=== PATIENT | female | born 1955 | race Caucasian/White ===

== ENCOUNTER → 2017-01-06 | Outpatient (CLI) | payer OTHER ==
[~2017-01-06] MED LIST: ADVAIR 250/501 EA INH; CARAFATE1 G1 PO; FERROUS GLUCON324 MG PO; LEVAQUIN750 MG PO; PROTONIX40 MG PO; REGLAN10 MG PO; REGLAN5 MG PO; SPIRIVA18 MCG PO
[2017-01-06 18:51] LABS: HEMATOCRIT 31.8 % (37.0-47.0); HEMOGLOBIN 10.5 g/dl (12.0-16.0); MEAN CELL VOLUME 80.7 fl (81.0-99.0); MEAN CORPUSCULAR HGB 26.6 pg (27.0-31.0); MEAN PLATELET VOLUME 9.9 fl (9.6-12.3); PLATELET COUNT AUTOMATED 364 10*3/uL (130-400); RED BLOOD COUNT 3.94 10*6/uL (4.10-5.10); RED CELL DISTRI WIDTH 13.7 % (0-14.5); WHITE BLOOD COUNT 10.3 10*3/uL (4.8-10.8)
[2017-01-06 19:00] LABS: INTERNATIONAL NORM RATIO 0.9 (2.0-3.5); PROTHROMBIN TIME 9.9 SECONDS (9.0-12.4)
[2017-01-06 19:08] LABS: BILIRUBIN, TOTAL 0.5 mg/dl (0.2-1.0); POTASSIUM 3.9 mmol/L (3.5-5.1); TOTAL PROTEIN 7.9 gm/dL (6.4-8.2)
[2017-01-06 19:24] LABS: EOSINOPHIL # 0.2 10*3/uL (0-0.4); EOSINOPHILS 2 % (1-4); LYMPHOCYTE # 1.2 10*3/uL (1.3-4.4); MONOCYTE # 1.6 10*3/uL (0.1-1.0); NEUTROPHIL # 7.2 10*3/uL (2.3-7.9); NEUTROPHILS 70 % (47-73); TOTAL CELLS COUNTED 100 #CELLS
[2017-01-06 19:25] LABS: PLATELET SUFFICIENCY NORMAL (NORMAL)
[2017-01-06 19:26] LABS: MICROCYTOSIS SLIGHT
[2017-01-06 19:27] LABS: HYPOCHROMIA SLIGHT
== END | disposition home or self-care (01) ==
LOC: LAB 18:18
PROVIDERS: Surgery
DX: C78.7 Secondary malignant neoplasm of liver and intrahepatic bile duct (principal)

== ENCOUNTER → 2017-01-09 | Outpatient (CLI) | payer OTHER ==
[2017-01-09 21:05] LABS: HEMATOCRIT 34.3 % (37.0-47.0); HEMOGLOBIN 11.2 g/dl (12.0-16.0); MEAN CELL VOLUME 82.3 fl (81.0-99.0); MEAN CORPUSCULAR HGB 26.9 pg (27.0-31.0); MEAN CORPUSCULAR HGB CONC 32.7 g/dl (33.0-37.0); MEAN PLATELET VOLUME 9.5 fl (9.6-12.3); PLATELET COUNT AUTOMATED 559 10*3/uL (130-400); RED BLOOD COUNT 4.17 10*6/uL (4.10-5.10); RED CELL DISTRI WIDTH 14.4 % (0-14.5); WHITE BLOOD COUNT 14.4 10*3/uL (4.8-10.8)
[2017-01-09 21:22] LABS: PROTHROMBIN TIME 10.1 SECONDS (9.0-12.4)
[2017-01-09 21:23] LABS: ALBUMIN 3.1 gm/dl (3.1-4.5); BILIRUBIN, TOTAL 0.3 mg/dl (0.2-1.0); POTASSIUM 3.6 mmol/L (3.5-5.1); TOTAL PROTEIN 8.1 gm/dL (6.4-8.2)
[2017-01-09 21:56] LABS: EOSINOPHIL # 0.3 10*3/uL (0-0.4); EOSINOPHILS 2 % (1-4); LYMPHOCYTE # 1.6 10*3/uL (1.3-4.4); MONOCYTE # 0.9 10*3/uL (0.1-1.0); NEUTROPHIL # 11.7 10*3/uL (2.3-7.9); NEUTROPHILS 81 % (47-73); TOTAL CELLS COUNTED 100 #CELLS
[2017-01-09 21:58] LABS: PLATELET SUFFICIENCY HIGH (NORMAL)
== END | disposition home or self-care (01) ==
LOC: LAB 20:25
PROVIDERS: Surgery
DX: C78.7 Secondary malignant neoplasm of liver and intrahepatic bile duct (principal)

== ENCOUNTER → 2017-01-13 | Outpatient (CLI) | payer OTHER ==
[2017-01-13 19:41] LABS: BASO # 0.1 10*3/uL (0.0-0.1); BASO % 0.7 % (0.0-1.0); EOS # 0.2 10*3/uL (0.0-0.4); EOS % 1.6 % (1.0-4.0); HEMATOCRIT 33.7 % (37.0-47.0); HEMOGLOBIN 10.5 g/dl (12.0-16.0); IG # 0.2 10*3/uL (0.0-0.1); LYMPH # 1.6 10*3/uL (1.3-4.4); LYMPH % 12.8 % (27.0-41.0); MEAN CELL VOLUME 84.5 fl (81.0-99.0); MEAN CORPUSCULAR HGB 26.3 pg (27.0-31.0); MEAN CORPUSCULAR HGB CONC 31.2 g/dl (33.0-37.0); MEAN PLATELET VOLUME 9.6 fl (9.6-12.3); MONO # 0.9 10*3/uL (0.1-1.0); MONO % 7.4 % (3.0-9.0); NEUT # 9.2 10*3/uL (2.3-7.9); NEUT % 75.7 % (47.0-73.0); PLATELET COUNT AUTOMATED 601 10*3/uL (130-400); RED BLOOD COUNT 3.99 10*6/uL (4.10-5.10); RED CELL DISTRI WIDTH 14.9 % (0-14.5); WHITE BLOOD COUNT 12.2 10*3/uL (4.8-10.8)
[2017-01-13 19:53] LABS: PROTHROMBIN TIME 10.1 SECONDS (9.0-12.4)
[2017-01-13 19:58] LABS: ALBUMIN 3.1 gm/dl (3.1-4.5); BILIRUBIN, TOTAL 0.3 mg/dl (0.2-1.0); POTASSIUM 3.8 mmol/L (3.5-5.1); TOTAL PROTEIN 7.9 gm/dL (6.4-8.2)
== END | disposition home or self-care (01) ==
LOC: LAB 19:06
PROVIDERS: Nurse Practitioner Family
DX: C78.7 Secondary malignant neoplasm of liver and intrahepatic bile duct (principal)

== ENCOUNTER → 2017-01-21 | Outpatient (CLI) | payer OTHER ==
[2017-01-21 16:25] LABS: BASO # 0.1 10*3/uL (0.0-0.1); BASO % 0.7 % (0.0-1.0); EOS # 0.2 10*3/uL (0.0-0.4); HEMOGLOBIN 11.2 g/dl (12.0-16.0); IG # 0.1 10*3/uL (0.0-0.1); LYMPH # 1.2 10*3/uL (1.3-4.4); LYMPH % 11.4 % (27.0-41.0); MEAN CELL VOLUME 85.4 fl (81.0-99.0); MEAN CORPUSCULAR HGB 27.3 pg (27.0-31.0); MEAN PLATELET VOLUME 9.5 fl (9.6-12.3); MONO # 1.3 10*3/uL (0.1-1.0); MONO % 12.2 % (3.0-9.0); NEUT # 7.6 10*3/uL (2.3-7.9); NEUT % 72.9 % (47.0-73.0); PLATELET COUNT AUTOMATED 436 10*3/uL (130-400); RED CELL DISTRI WIDTH 17.1 % (0-14.5); WHITE BLOOD COUNT 10.4 10*3/uL (4.8-10.8)
== END | disposition home or self-care (01) ==
LOC: LAB 16:07
PROVIDERS: Surgery
DX: C7A.090 Malignant carcinoid tumor of the bronchus and lung (principal)

== ENCOUNTER → 2017-02-10 | Outpatient (CLI) | payer OTHER ==
[2017-02-10 19:38] LABS: BASO # 0.1 10*3/uL (0.0-0.1); BASO % 0.6 % (0.0-1.0); EOS # 0.1 10*3/uL (0.0-0.4); EOS % 0.5 % (1.0-4.0); HEMATOCRIT 31.2 % (37.0-47.0); HEMOGLOBIN 10.3 g/dl (12.0-16.0); IG # 0.3 10*3/uL (0.0-0.1); LYMPH # 1.4 10*3/uL (1.3-4.4); LYMPH % 12.5 % (27.0-41.0); MEAN CELL VOLUME 87.4 fl (81.0-99.0); MEAN CORPUSCULAR HGB 28.9 pg (27.0-31.0); MEAN PLATELET VOLUME 9.2 fl (9.6-12.3); MONO # 1.2 10*3/uL (0.1-1.0); MONO % 10.9 % (3.0-9.0); NEUT % 72.9 % (47.0-73.0); PLATELET COUNT AUTOMATED 362 10*3/uL (130-400); RED BLOOD COUNT 3.57 10*6/uL (4.10-5.10); RED CELL DISTRI WIDTH 18.6 % (0-14.5); WHITE BLOOD COUNT 10.9 10*3/uL (4.8-10.8)
[2017-02-10 19:47] LABS: INTERNATIONAL NORM RATIO 0.9 (2.0-3.5); PROTHROMBIN TIME 9.6 SECONDS (9.0-12.4)
[2017-02-10 19:53] LABS: ALBUMIN 3.2 gm/dl (3.1-4.5); BILIRUBIN, TOTAL 0.5 mg/dl (0.2-1.0); MAGNESIUM 2.1 mg/dL (1.5-2.1); PHOSPHOROUS 1.6 mg/dL (2.5-4.9); POTASSIUM 3.5 mmol/L (3.5-5.1); TOTAL PROTEIN 7.8 gm/dL (6.4-8.2)
== END | disposition home or self-care (01) ==
LOC: LAB 19:07
PROVIDERS: Physician Assistant Medical
DX: C78.7 Secondary malignant neoplasm of liver and intrahepatic bile duct (principal); C7A.090 Malignant carcinoid tumor of the bronchus and lung

== ENCOUNTER → 2017-02-13 | Outpatient (CLI) | payer OTHER ==
[2017-02-13 19:49] LABS: BASO # 0.1 10*3/uL (0.0-0.1); BASO % 0.6 % (0.0-1.0); EOS # 0.1 10*3/uL (0.0-0.4); EOS % 0.9 % (1.0-4.0); HEMOGLOBIN 10.1 g/dl (12.0-16.0); IG # 0.2 10*3/uL (0.0-0.1); LYMPH # 1.7 10*3/uL (1.3-4.4); LYMPH % 14.4 % (27.0-41.0); MEAN CELL VOLUME 89.6 fl (81.0-99.0); MEAN CORPUSCULAR HGB 29.2 pg (27.0-31.0); MEAN CORPUSCULAR HGB CONC 32.6 g/dl (33.0-37.0); MONO # 1.2 10*3/uL (0.1-1.0); MONO % 10.2 % (3.0-9.0); NEUT # 8.3 10*3/uL (2.3-7.9); NEUT % 72.1 % (47.0-73.0); PLATELET COUNT AUTOMATED 415 10*3/uL (130-400); RED BLOOD COUNT 3.46 10*6/uL (4.10-5.10); RED CELL DISTRI WIDTH 19.3 % (0-14.5); WHITE BLOOD COUNT 11.6 10*3/uL (4.8-10.8)
[2017-02-13 19:59] LABS: ALBUMIN 3.2 gm/dl (3.1-4.5); ALKALINE PHOSPHATASE 79 U/L (45-117); BILIRUBIN, TOTAL 0.5 mg/dl (0.2-1.0); BUN 24 mg/dl (7-24); CARBON DIOXIDE 30 mmol/L (21-32); CHLORIDE 97 mmol/L (98-107); EST GLOM FILT AFRICAN AMERICAN > 60 ml/min; GLUCOSE 94 mg/dL (65-99); MAGNESIUM 1.9 mg/dL (1.5-2.1); PHOSPHOROUS 3.8 mg/dL (2.5-4.9); POTASSIUM 4.8 mmol/L (3.5-5.1); SGOT/AST 20 IU/L (3-35); SGPT/ALT 57 U/L (12-78); SODIUM 136 mmol/L (136-145); TOTAL PROTEIN 7.7 gm/dL (6.4-8.2)
[2017-02-13 20:07] LABS: INTERNATIONAL NORM RATIO 0.9 (2.0-3.5); PROTHROMBIN TIME 9.9 SECONDS (9.0-12.4)
== END | disposition home or self-care (01) ==
LOC: LAB 18:55
PROVIDERS: Physician Assistant Medical
DX: C78.7 Secondary malignant neoplasm of liver and intrahepatic bile duct (principal)

== ENCOUNTER → 2017-02-17 | Outpatient (CLI) | payer OTHER ==
[2017-02-17 19:35] LABS: ALBUMIN 3.2 gm/dl (3.1-4.5); ALKALINE PHOSPHATASE 74 U/L (45-117); BASO % 0.7 % (0.0-1.0); BILIRUBIN, TOTAL 0.3 mg/dl (0.2-1.0); BUN 21 mg/dl (7-24); CARBON DIOXIDE 31 mmol/L (21-32); CHLORIDE 99 mmol/L (98-107); EOS # 0.1 10*3/uL (0.0-0.4); EOS % 1.6 % (1.0-4.0); EST GLOM FILT AFRICAN AMERICAN > 60 ml/min; GLUCOSE 101 mg/dL (65-99); HEMATOCRIT 31.8 % (37.0-47.0); HEMOGLOBIN 10.1 g/dl (12.0-16.0); IG # 0.1 10*3/uL (0.0-0.1); LYMPH # 1.3 10*3/uL (1.3-4.4); LYMPH % 22.9 % (27.0-41.0); MAGNESIUM 1.9 mg/dL (1.5-2.1); MEAN CELL VOLUME 92.4 fl (81.0-99.0); MEAN CORPUSCULAR HGB 29.4 pg (27.0-31.0); MEAN CORPUSCULAR HGB CONC 31.8 g/dl (33.0-37.0); MEAN PLATELET VOLUME 9.2 fl (9.6-12.3); MONO # 0.8 10*3/uL (0.1-1.0); MONO % 13.4 % (3.0-9.0); NEUT # 3.4 10*3/uL (2.3-7.9); NEUT % 60.1 % (47.0-73.0); PHOSPHOROUS 2.5 mg/dL (2.5-4.9); PLATELET COUNT AUTOMATED 417 10*3/uL (130-400); POTASSIUM 4.4 mmol/L (3.5-5.1); RED BLOOD COUNT 3.44 10*6/uL (4.10-5.10); RED CELL DISTRI WIDTH 19.9 % (0-14.5); SGOT/AST 18 IU/L (3-35); SGPT/ALT 27 U/L (12-78); SODIUM 138 mmol/L (136-145); TOTAL PROTEIN 7.3 gm/dL (6.4-8.2); WHITE BLOOD COUNT 5.6 10*3/uL (4.8-10.8)
[2017-02-17 19:36] LABS: INTERNATIONAL NORM RATIO 0.9 (2.0-3.5); PROTHROMBIN TIME 9.9 SECONDS (9.0-12.4)
== END | disposition home or self-care (01) ==
LOC: LAB 18:41
PROVIDERS: Surgery
DX: R79.89 Other specified abnormal findings of blood chemistry (principal); Z85.05 Personal history of malignant neoplasm of liver

== ENCOUNTER → 2017-02-25 | Outpatient (CLI) | payer OTHER ==
[2017-02-25 19:07] LABS: BASO # 0.1 10*3/uL (0.0-0.1); BASO % 0.9 % (0.0-1.0); EOS # 0.2 10*3/uL (0.0-0.4); EOS % 3.4 % (1.0-4.0); HEMATOCRIT 37.5 % (37.0-47.0); LYMPH # 1.4 10*3/uL (1.3-4.4); LYMPH % 25.5 % (27.0-41.0); MEAN CELL VOLUME 95.2 fl (81.0-99.0); MEAN CORPUSCULAR HGB 30.5 pg (27.0-31.0); MONO # 0.7 10*3/uL (0.1-1.0); MONO % 12.7 % (3.0-9.0); NEUT # 3.1 10*3/uL (2.3-7.9); NEUT % 56.9 % (47.0-73.0); PLATELET COUNT AUTOMATED 333 10*3/uL (130-400); RED BLOOD COUNT 3.94 10*6/uL (4.10-5.10); RED CELL DISTRI WIDTH 20.2 % (0-14.5); WHITE BLOOD COUNT 5.4 10*3/uL (4.8-10.8)
[2017-02-25 19:22] LABS: ALBUMIN 3.5 gm/dl (3.1-4.5); BILIRUBIN, TOTAL 0.2 mg/dl (0.2-1.0); POTASSIUM 3.9 mmol/L (3.5-5.1); TOTAL PROTEIN 7.6 gm/dL (6.4-8.2)
== END | disposition home or self-care (01) ==
LOC: LAB 18:49
PROVIDERS: Internal Medicine Hematology & Oncology
DX: C7A.8 Other malignant neuroendocrine tumors (principal); M81.8 Other osteoporosis without current pathological fracture; M81.0 Age-related osteoporosis without current pathological fracture; I10 Essential (primary) hypertension; R59.9 Enlarged lymph nodes, unspecified

== ENCOUNTER → 2017-04-22 | Outpatient (CLI) | payer OTHER ==
[2017-04-22 21:04] LABS: BASO # 0.1 10*3/uL (0.0-0.1); BASO % 0.7 % (0.0-1.0); EOS # 0.1 10*3/uL (0.0-0.4); HEMATOCRIT 39.8 % (37.0-47.0); HEMOGLOBIN 13.1 g/dl (12.0-16.0); LYMPH # 1.6 10*3/uL (1.3-4.4); LYMPH % 22.4 % (27.0-41.0); MEAN CELL VOLUME 97.1 fl (81.0-99.0); MEAN CORPUSCULAR HGB CONC 32.9 g/dl (33.0-37.0); MONO # 0.8 10*3/uL (0.1-1.0); MONO % 11.2 % (3.0-9.0); NEUT # 4.5 10*3/uL (2.3-7.9); NEUT % 63.3 % (47.0-73.0); PLATELET COUNT AUTOMATED 267 10*3/uL (130-400); RED CELL DISTRI WIDTH 12.6 % (0-14.5); WHITE BLOOD COUNT 7.1 10*3/uL (4.8-10.8)
[2017-04-22 21:15] LABS: ALBUMIN 3.8 gm/dl (3.1-4.5); CREATININE 1.57 mg/dL (0.55-1.02); POTASSIUM 4.3 mmol/L (3.5-5.1)
== END | disposition home or self-care (01) ==
LOC: LAB 20:15
PROVIDERS: Internal Medicine Hematology & Oncology
DX: C7A.8 Other malignant neuroendocrine tumors (principal); R59.9 Enlarged lymph nodes, unspecified; M81.8 Other osteoporosis without current pathological fracture; I10 Essential (primary) hypertension

== ENCOUNTER → 2017-05-04 | Outpatient (CLI) | payer OTHER ==
[2017-05-04 22:08] LABS: FERRITIN 116.2 ng/mL (10.0-291.0)
== END | disposition home or self-care (01) ==
LOC: LAB 20:57
PROVIDERS: Internal Medicine Hematology & Oncology
DX: C34.91 Malignant neoplasm of unspecified part of right bronchus or lung (principal); R59.9 Enlarged lymph nodes, unspecified; M81.0 Age-related osteoporosis without current pathological fracture; C7A.8 Other malignant neuroendocrine tumors

== ENCOUNTER → 2017-07-07 | Outpatient (CLI) | payer OTHER ==
[2017-07-07 21:56] LABS: BASO % 0.7 % (0.0-1.0); EOS # 0.1 10*3/uL (0.0-0.4); EOS % 1.9 % (1.0-4.0); HEMATOCRIT 37.1 % (37.0-47.0); HEMOGLOBIN 12.8 g/dl (12.0-16.0); LYMPH # 1.2 10*3/uL (1.3-4.4); MEAN CELL VOLUME 93.5 fl (81.0-99.0); MEAN CORPUSCULAR HGB 32.2 pg (27.0-31.0); MEAN CORPUSCULAR HGB CONC 34.5 g/dl (33.0-37.0); MEAN PLATELET VOLUME 9.9 fl (9.6-12.3); MONO # 0.8 10*3/uL (0.1-1.0); MONO % 14.8 % (3.0-9.0); NEUT # 3.2 10*3/uL (2.3-7.9); NEUT % 59.9 % (47.0-73.0); PLATELET COUNT AUTOMATED 227 10*3/uL (130-400); RED BLOOD COUNT 3.97 10*6/uL (4.10-5.10); RED CELL DISTRI WIDTH 12.8 % (0-14.5); WHITE BLOOD COUNT 5.4 10*3/uL (4.8-10.8)
[2017-07-07 22:05] LABS: INTERNATIONAL NORM RATIO 0.9 (2.0-3.5)
[2017-07-07 22:14] LABS: ALBUMIN 3.7 gm/dl (3.1-4.5); CREATININE 1.85 mg/dL (0.55-1.02); POTASSIUM 4.9 mmol/L (3.5-5.1)
== END | disposition home or self-care (01) ==
LOC: LAB 21:24
PROVIDERS: Physician Assistant Medical
DX: R79.1 Abnormal coagulation profile (principal); Z92.21 Personal history of antineoplastic chemotherapy

== ENCOUNTER → 2017-07-11 | Outpatient (CLI) | payer OTHER ==
[2017-07-11 19:07] LABS: BASO % 0.5 % (0.0-1.0); EOS # 0.1 10*3/uL (0.0-0.4); EOS % 1.3 % (1.0-4.0); HEMATOCRIT 36.1 % (37.0-47.0); HEMOGLOBIN 12.2 g/dl (12.0-16.0); LYMPH # 1.5 10*3/uL (1.3-4.4); LYMPH % 19.3 % (27.0-41.0); MEAN CELL VOLUME 94.5 fl (81.0-99.0); MEAN CORPUSCULAR HGB 31.9 pg (27.0-31.0); MEAN CORPUSCULAR HGB CONC 33.8 g/dl (33.0-37.0); MEAN PLATELET VOLUME 9.7 fl (9.6-12.3); MONO # 0.7 10*3/uL (0.1-1.0); MONO % 9.1 % (3.0-9.0); NEUT # 5.2 10*3/uL (2.3-7.9); NEUT % 68.9 % (47.0-73.0); PLATELET COUNT AUTOMATED 254 10*3/uL (130-400); RED BLOOD COUNT 3.82 10*6/uL (4.10-5.10); RED CELL DISTRI WIDTH 12.9 % (0-14.5); WHITE BLOOD COUNT 7.6 10*3/uL (4.8-10.8)
[2017-07-11 19:16] LABS: INTERNATIONAL NORM RATIO 0.9 (2.0-3.5)
[2017-07-11 19:22] LABS: ALBUMIN 3.8 gm/dl (3.1-4.5); CREATININE 1.61 mg/dL (0.55-1.02); PHOSPHOROUS 3.5 mg/dL (2.5-4.9); POTASSIUM 3.9 mmol/L (3.5-5.1); TOTAL PROTEIN 8.1 gm/dL (6.4-8.2)
== END | disposition home or self-care (01) ==
LOC: LAB 18:40
PROVIDERS: Surgery
DX: Z48.89 Encounter for other specified surgical aftercare (principal); Z98.890 Other specified postprocedural states

== ENCOUNTER → 2017-11-16 | Outpatient (CLI) | payer OTHER | END | disposition home or self-care (01) | LOC: LAB 17:46 | DX: C7A.090 Malignant carcinoid tumor of the bronchus and lung (principal) ==

== ENCOUNTER → 2018-08-31 | Outpatient (CLI) | payer OTHER ==
[2018-08-31 21:44] LABS: BASO # 0.1 10*3/uL (0.0-0.1); BASO % 0.9 % (0.0-1.0); EOS # 0.2 10*3/uL (0.0-0.4); EOS % 2.8 % (1.0-4.0); HEMATOCRIT 36.5 % (37.0-47.0); HEMOGLOBIN 12.5 g/dl (12.0-16.0); LYMPH % 14.7 % (27.0-41.0); MEAN CELL VOLUME 99.7 fl (81.0-99.0); MEAN CORPUSCULAR HGB 34.2 pg (27.0-31.0); MEAN CORPUSCULAR HGB CONC 34.2 g/dl (33.0-37.0); MEAN PLATELET VOLUME 9.6 fl (9.6-12.3); MONO # 0.8 10*3/uL (0.1-1.0); MONO % 12.3 % (3.0-9.0); NEUT # 4.6 10*3/uL (2.3-7.9); NEUT % 68.1 % (47.0-73.0); PLATELET COUNT AUTOMATED 247 10*3/uL (130-400); RED BLOOD COUNT 3.66 10*6/uL (4.10-5.10); RED CELL DISTRI WIDTH 14.6 % (0-14.5); WHITE BLOOD COUNT 6.7 10*3/uL (4.8-10.8)
[2018-08-31 22:08] LABS: ALBUMIN 3.4 gm/dl (3.1-4.5); CREATININE 1.58 mg/dL (0.55-1.02); POTASSIUM 3.7 mmol/L (3.5-5.1); TOTAL PROTEIN 7.6 gm/dL (6.4-8.2)
== END | disposition home or self-care (01) ==
LOC: LAB 21:13
PROVIDERS: Internal Medicine Hematology & Oncology
DX: M81.0 Age-related osteoporosis without current pathological fracture (principal); C78.7 Secondary malignant neoplasm of liver and intrahepatic bile duct; C34.91 Malignant neoplasm of unspecified part of right bronchus or lung; C7A.8 Other malignant neuroendocrine tumors; R59.9 Enlarged lymph nodes, unspecified

== ENCOUNTER → 2019-05-16 | Outpatient (CLI) | payer MEDICARE ==
[2019-05-16 18:18] LABS: HEMATOCRIT 32.2 % (37.0-47.0); HEMOGLOBIN 10.9 g/dl (12.0-16.0); MEAN CELL VOLUME 113.8 fl (81.0-99.0); MEAN CORPUSCULAR HGB 38.5 pg (27.0-31.0); MEAN CORPUSCULAR HGB CONC 33.9 g/dl (33.0-37.0); MEAN PLATELET VOLUME 9.8 fl (9.6-12.3); PLATELET COUNT AUTOMATED 223 10*3/uL (130-400); RED BLOOD COUNT 2.83 10*6/uL (4.10-5.10); RED CELL DISTRI WIDTH 16.2 % (0-14.5); WHITE BLOOD COUNT 4.5 10*3/uL (4.8-10.8)
[2019-05-16 18:33] LABS: CREATININE 2.12 mg/dL (0.55-1.02); POTASSIUM 3.6 mmol/L (3.5-5.1)
[2019-05-16 19:12] LABS: BASOPHILS 1 % (0-1); TOTAL CELLS COUNTED 100 #CELLS
[2019-05-16 19:13] LABS: PLATELET SUFFICIENCY NORMAL (NORMAL); POLYCHROMASIA SLIGHT
[2019-05-16 19:14] LABS: STOMATOCYTE FEW
== END | disposition home or self-care (01) ==
LOC: LAB 17:50
PROVIDERS: Internal Medicine Hematology & Oncology
DX: C34.91 Malignant neoplasm of unspecified part of right bronchus or lung (principal); C78.7 Secondary malignant neoplasm of liver and intrahepatic bile duct; E78.00 Pure hypercholesterolemia, unspecified; I10 Essential (primary) hypertension; M81.0 Age-related osteoporosis without current pathological fracture; C7A.8 Other malignant neuroendocrine tumors; R59.9 Enlarged lymph nodes, unspecified

== ENCOUNTER → 2020-06-05 | Outpatient (CLI) | payer MEDICARE | END | disposition home or self-care (01) | LOC: RAD 14:00 | DX: M85.89 Other specified disorders of bone density and structure, multiple sites (principal); C7A.8 Other malignant neuroendocrine tumors; R59.9 Enlarged lymph nodes, unspecified; C34.91 Malignant neoplasm of unspecified part of right bronchus or lung; C78.7 Secondary malignant neoplasm of liver and intrahepatic bile duct; C7B.8 Other secondary neuroendocrine tumors; E86.0 Dehydration; C34.11 Malignant neoplasm of upper lobe, right bronchus or lung; Z51.12 Encounter for antineoplastic immunotherapy; Z12.31 Encounter for screening mammogram for malignant neoplasm of breast ==

== ENCOUNTER → 2020-09-03 | Outpatient (CLI) | payer MEDICARE ==
[2020-09-03 19:45] LABS: BASO # 0.1 10*3/uL (0.0-0.1); BASO % 0.9 % (0.0-1.0); EOS # 0.2 10*3/uL (0.0-0.4); EOS % 1.9 % (1.0-4.0); HEMATOCRIT 44.4 % (37.0-47.0); LYMPH # 3.7 10*3/uL (1.3-4.4); LYMPH % 45.7 % (27.0-41.0); MEAN CELL VOLUME 93.5 fl (81.0-99.0); MEAN CORPUSCULAR HGB 30.1 pg (27.0-31.0); MEAN CORPUSCULAR HGB CONC 32.2 g/dl (33.0-37.0); MONO # 0.8 10*3/uL (0.1-1.0); MONO % 9.5 % (3.0-9.0); NEUT # 3.4 10*3/uL (2.3-7.9); NEUT % 41.8 % (47.0-73.0); PLATELET COUNT AUTOMATED 233 10*3/uL (130-400); RED BLOOD COUNT 4.75 10*6/uL (4.10-5.10); RED CELL DISTRI WIDTH 13.9 % (0-14.5)
[2020-09-03 19:59] LABS: ALBUMIN 3.5 gm/dl (3.1-4.5); CREATININE 1.12 mg/dL (0.55-1.02); POTASSIUM 4.4 mmol/L (3.5-5.1); TOTAL PROTEIN 7.6 gm/dL (6.4-8.2)
== END | disposition home or self-care (01) ==
LOC: LAB 18:28
PROVIDERS: ATTEND Internal Medicine Hematology & Oncology
DX: Z51.12 Encounter for antineoplastic immunotherapy (principal); C34.11 Malignant neoplasm of upper lobe, right bronchus or lung; C7B.8 Other secondary neuroendocrine tumors; C78.7 Secondary malignant neoplasm of liver and intrahepatic bile duct; C34.91 Malignant neoplasm of unspecified part of right bronchus or lung; C7A.8 Other malignant neuroendocrine tumors; M81.0 Age-related osteoporosis without current pathological fracture; R59.9 Enlarged lymph nodes, unspecified; E86.0 Dehydration; Z12.31 Encounter for screening mammogram for malignant neoplasm of breast

== ENCOUNTER → 2021-04-06 | Outpatient (CLI) | payer MEDICARE ==
[2021-04-06 18:29] LABS: ALBUMIN 3.2 gm/dl (3.1-4.5); ALKALINE PHOSPHATASE 176 U/L (45-117); BUN 18 mg/dl (7-24); CHLORIDE 94 mmol/L (98-107); CREATININE 0.96 mg/dL (0.55-1.02); LDH 954 U/L (84-246); POTASSIUM 3.4 mmol/L (3.5-5.1); SGOT/AST 103 IU/L (3-35); SGPT/ALT 110 U/L (12-78); SODIUM 137 mmol/L (136-145); TOTAL PROTEIN 6.4 gm/dL (6.4-8.2)
== END | disposition home or self-care (01) ==
LOC: LAB 17:40
PROVIDERS: ATTEND Internal Medicine
DX: Z51.12 Encounter for antineoplastic immunotherapy (principal); C34.11 Malignant neoplasm of upper lobe, right bronchus or lung; E86.0 Dehydration; C7B.8 Other secondary neuroendocrine tumors; C78.7 Secondary malignant neoplasm of liver and intrahepatic bile duct; C34.91 Malignant neoplasm of unspecified part of right bronchus or lung; M81.0 Age-related osteoporosis without current pathological fracture; C7A.8 Other malignant neuroendocrine tumors; R59.9 Enlarged lymph nodes, unspecified

== ENCOUNTER → 2021-04-12 | Outpatient (CLI) | payer MEDICARE ==
[2021-04-12 07:54] LABS: BUN 15 mg/dl (7-24); CHLORIDE 89 mmol/L (98-107); POTASSIUM 2.6 mmol/L (3.5-5.1); SODIUM 142 mmol/L (136-145)
[2021-04-12 07:56] LABS: CREATININE 0.99 mg/dL (0.55-1.02)
== END | disposition home or self-care (01) ==
LOC: LAB 06:56
PROVIDERS: ATTEND Internal Medicine
DX: E24.3 Ectopic ACTH syndrome (principal); I10 Essential (primary) hypertension; M81.0 Age-related osteoporosis without current pathological fracture

== ENCOUNTER → 2021-05-04 | Outpatient (CLI) | payer MEDICARE ==
[2021-05-04 14:31] LABS: BUN 28 mg/dl (7-24); CHLORIDE 102 mmol/L (98-107); CREATININE 0.89 mg/dL (0.55-1.02); POTASSIUM 4.6 mmol/L (3.5-5.1); SODIUM 142 mmol/L (136-145)
== END | disposition home or self-care (01) ==
LOC: LAB 13:40
PROVIDERS: ATTEND Internal Medicine
DX: E87.6 Hypokalemia (principal); E83.42 Hypomagnesemia

== ENCOUNTER → 2021-05-13 | Outpatient (CLI) | payer MEDICARE ==
[2021-05-13 20:04] LABS: HEMATOCRIT 31.5 % (37.0-47.0); MEAN CELL VOLUME 101.3 fl (81.0-99.0); MEAN CORPUSCULAR HGB 33.4 pg (27.0-31.0); MEAN PLATELET VOLUME 10.8 fl (9.6-12.3); NUCLEATED RED BLOOD CELL 0.2 % (0.0-0.0); PLATELET COUNT AUTOMATED 202 10*3/uL (130-400); RED BLOOD COUNT 3.11 10*6/uL (4.10-5.10); RED CELL DISTRI WIDTH 21.2 % (0-14.5); WHITE BLOOD COUNT 18.4 10*3/uL (4.8-10.8)
[2021-05-13 20:18] LABS: ALKALINE PHOSPHATASE 190 U/L (45-117); BUN 18 mg/dl (7-24); CHLORIDE 101 mmol/L (98-107); CREATININE 0.87 mg/dL (0.55-1.02); POTASSIUM 3.1 mmol/L (3.5-5.1); SGOT/AST 28 IU/L (3-35); SGPT/ALT 41 U/L (12-78); SODIUM 145 mmol/L (136-145); TOTAL PROTEIN 5.4 gm/dL (6.4-8.2)
[2021-05-13 20:32] LABS: PLATELET SUFFICIENCY NORMAL (NORMAL); TOTAL CELLS COUNTED 100 #CELLS
[2021-05-13 20:33] LABS: BURR CELLS FEW
== END | disposition home or self-care (01) ==
LOC: LAB 19:32
PROVIDERS: ATTEND Internal Medicine
DX: C7A.8 Other malignant neuroendocrine tumors (principal); E24.3 Ectopic ACTH syndrome; R74.01 Elevation of levels of liver transaminase levels; M81.0 Age-related osteoporosis without current pathological fracture; Z79.899 Other long term (current) drug therapy

== ENCOUNTER → 2021-05-16 | Outpatient (CLI) | payer MEDICARE ==
[2021-05-21 14:07] LABS: 5-HIAA, URINE, 24 HR 12.6 mg/24 hr (0.0-14.9)
== END | disposition home or self-care (01) ==
LOC: LAB 14:57
PROVIDERS: ATTEND Internal Medicine
DX: D3A.090 Benign carcinoid tumor of the bronchus and lung (principal)

== ENCOUNTER → 2021-05-17 | Outpatient (CLI) | payer MEDICARE ==
[2021-05-17 09:04] LABS: CHLORIDE 102 mmol/L (98-107); SODIUM 143 mmol/L (136-145)
[2021-05-17 09:12] LABS: BUN 22 mg/dl (7-24); CREATININE 0.95 mg/dL (0.55-1.02)
== END | disposition home or self-care (01) ==
LOC: LAB 08:10
PROVIDERS: ATTEND Internal Medicine
DX: E24.9 Cushing's syndrome, unspecified (principal)

== ENCOUNTER → 2021-05-20 | Outpatient (CLI) | payer MEDICARE ==
[2021-05-20 10:39] LABS: HEMATOCRIT 30.5 % (37.0-47.0); MEAN CELL VOLUME 103.4 fl (81.0-99.0); MEAN CORPUSCULAR HGB 32.9 pg (27.0-31.0); MEAN CORPUSCULAR HGB CONC 31.8 g/dl (33.0-37.0); MEAN PLATELET VOLUME 10.1 fl (9.6-12.3); NUCLEATED RED BLOOD CELL 0.3 % (0.0-0.0); PLATELET COUNT AUTOMATED 132 10*3/uL (130-400); RED BLOOD COUNT 2.95 10*6/uL (4.10-5.10); RED CELL DISTRI WIDTH 20.7 % (0-14.5); WHITE BLOOD COUNT 15.6 10*3/uL (4.8-10.8)
[2021-05-20 10:55] LABS: TOTAL CELLS COUNTED 100 #CELLS
[2021-05-20 10:56] LABS: ACANTHOCYTES FEW; PLATELET SUFFICIENCY NORMAL (NORMAL); SCHISTOCYTES FEW; TOXIC GRANULATION SLIGHT
[2021-05-20 10:58] LABS: ALBUMIN 2.3 gm/dl (3.1-4.5); ALKALINE PHOSPHATASE 229 U/L (45-117); BUN 23 mg/dl (7-24); CHLORIDE 99 mmol/L (98-107); CREATININE 0.88 mg/dL (0.55-1.02); IRON 90 ug/dL (50-170); POTASSIUM 3.5 mmol/L (3.5-5.1); SGOT/AST 44 IU/L (3-35); SGPT/ALT 55 U/L (12-78); SODIUM 139 mmol/L (136-145); TOTAL IRON BINDING CAPACITY 300 ug/dl (250-450); TOTAL PROTEIN 5.7 gm/dL (6.4-8.2)
[2021-05-20 11:06] LABS: THYROID STIM HORMONE (HS) 0.531 uIU/ml (0.358-4.75)
== END | disposition home or self-care (01) ==
LOC: LAB 10:02
PROVIDERS: ATTEND Internal Medicine
DX: Z51.11 Encounter for antineoplastic chemotherapy (principal); Z51.12 Encounter for antineoplastic immunotherapy; Z45.2 Encounter for adjustment and management of vascular access device; C7A.8 Other malignant neuroendocrine tumors; E87.6 Hypokalemia; E83.42 Hypomagnesemia; N17.9 Acute kidney failure, unspecified; E24.9 Cushing's syndrome, unspecified; R53.83 Other fatigue; E24.3 Ectopic ACTH syndrome; R74.01 Elevation of levels of liver transaminase levels; R59.9 Enlarged lymph nodes, unspecified; M81.0 Age-related osteoporosis without current pathological fracture; C34.91 Malignant neoplasm of unspecified part of right bronchus or lung; C78.7 Secondary malignant neoplasm of liver and intrahepatic bile duct; E86.0 Dehydration; C34.11 Malignant neoplasm of upper lobe, right bronchus or lung; E11.9 Type 2 diabetes mellitus without complications